=== PATIENT | male | born 1950 | race Caucasian/White ===

== ENCOUNTER 2017-03-07 08:17 | Day surgery (SDC) | payer OTHER ==
[~2017-03-07] VITALS: Ht 170.2 cm; Wt 73.0 kg
[~2017-03-07 08:17] MED LIST: FINA5 PO; FISH OIL 1,0001 EAC1; Felodipine ER5 MG PO; Flonase 0.05% N16 GM; LOVA40; OMEPRAZOLE MAGN20 MG PO; PARO10 PO
== END 2017-03-07 11:27 | disposition home or self-care (01) ==
LOC: ORSCSDS 08:17
PROVIDERS: Internal Medicine Gastroenterology
PROC: 0DBK8ZX Excision of Ascending Colon, Via Natural or Artificial Opening Endoscopic, Diagnostic (ICD-10-PCS; principal; 2017-03-07 09:45)
PROC: 0DB58ZX Excision of Esophagus, Via Natural or Artificial Opening Endoscopic, Diagnostic (ICD-10-PCS; principal; 2017-03-07 09:45)
DX: K22.70 Barrett's esophagus without dysplasia (principal); K21.0 Gastro-esophageal reflux disease with esophagitis; D12.2 Benign neoplasm of ascending colon; K57.30 Diverticulosis of large intestine without perforation or abscess without bleeding; Z86.010 Personal history of colon polyps; K59.00 Constipation, unspecified; E78.5 Hyperlipidemia, unspecified; Z87.891 Personal history of nicotine dependence; Z79.899 Other long term (current) drug therapy
CPT/HCPCS: 88305; 88312; J7120

== ENCOUNTER 2019-04-16 12:28 | Day surgery (SDC) | payer OTHER ==
[~2019-04-16] VITALS: Ht 167.6 cm; Wt 75.6 kg
== END 2019-04-16 14:43 | disposition home or self-care (01) ==
LOC: ORSCSDS 12:28
PROVIDERS: Internal Medicine Gastroenterology
PROC: 0DB58ZX Excision of Esophagus, Via Natural or Artificial Opening Endoscopic, Diagnostic (ICD-10-PCS; principal; 2019-04-16 13:45)
DX: K22.70 Barrett's esophagus without dysplasia (principal); E78.5 Hyperlipidemia, unspecified; I10 Essential (primary) hypertension; Z79.899 Other long term (current) drug therapy
CPT/HCPCS: 88305; J2704; J7120

== ENCOUNTER 2023-01-01 06:04 | Day surgery (SDC) | payer OTHER ==
[~2023-01-01] VITALS: Ht 170.2 cm; Wt 79.7 kg
--- NOTE | 2023-01-01 07:40 | NUR ---
01/01/23 0740 [facility] 0733: BLOCK COMPLETED BY DR TYSON. TIMEOUT COMPLETED PRIOR TO PROCEDURE.
--- NOTE | 2023-01-01 08:19 | NUR ---
01/01/23 0819 Kathy Andres 1ML OF EPI (1MG/ML) ADDED TO THE FIRST BAG OF IRRIGATION FLUID FOR USE AT THE OPSITE BY DR KRISHNA.
--- NOTE | 2023-01-01 10:43 | NUR ---
01/01/23 1043 RIC BELLE IV REMOVED CATHETER INTACT WNL
[2023-01-01 10:58] VITALS: BP 121/77
== END 2023-01-01 11:07 | disposition home or self-care (01) ==
LOC: ORSCSDS 06:04
PROVIDERS: Orthopaedic Surgery
PROC: 0LS34ZZ Reposition Right Upper Arm Tendon, Percutaneous Endoscopic Approach (ICD-10-PCS; principal; 2023-01-01 07:30)
PROC: 0RNJ4ZZ Release Right Shoulder Joint, Percutaneous Endoscopic Approach (ICD-10-PCS; principal; 2023-01-01 07:30)
DX: M75.121 Complete rotator cuff tear or rupture of right shoulder, not specified as traumatic (principal); M19.011 Primary osteoarthritis, right shoulder; M75.41 Impingement syndrome of right shoulder; K21.9 Gastro-esophageal reflux disease without esophagitis; Z79.899 Other long term (current) drug therapy
CPT/HCPCS: C1713; J0171; J0690; J1100; J2250; J2405; J2704; J3010; J7120

== ENCOUNTER → 2024-03-01 | Outpatient (CLI) | payer OTHER | LOC: LAB 14:40 → LAB SHORT 14:40 | DX: R35.0 Frequency of micturition (principal) | CPT/HCPCS: 87086 ==

== ENCOUNTER 2024-03-24 06:52 | Day surgery (SDC) | payer OTHER ==
[~2024-03-24] VITALS: Ht 170.2 cm; Wt 81.9 kg
[2024-03-24] MEDS ORDERED: Midazolam HCl 1MG / ML 2ML Vial ONE (06:56)
[2024-03-24] MEDS ORDERED: propofoL 20 ML IV ONE (06:56)
[2024-03-24] MEDS ORDERED: FentaNYL Citrate 50 MCG/ML 2 ML Injection ONE ×2 (06:56→10:04)
[2024-03-24] MEDS ORDERED: Dexamethasone Sod Phos 10 MG/ML 1ML VIAL ONE (06:57)
[2024-03-24] MEDS ORDERED: Glycopyrrolate 0.2 MG/ML 5ML VIAL ONE ×2 (06:57→10:40)
[2024-03-24] MEDS ORDERED: Ondansetron HCl 2 MG / ML 2ML Vial ONE (06:57)
[2024-03-24] MEDS ORDERED: Bupivacaine 0.5% HCl 5 MG/ML 30MLVIAL ONE (06:57)
[2024-03-24] MEDS ORDERED: Phenylephrine HCl 100 MCG/ML-NS 10MLSYR (1MG/10ML) ONE (06:57)
[2024-03-24] MEDS ORDERED: Rocuronium Bromide 10 MG/ML 5ML Injection IV ONE (06:57)
[2024-03-24] MEDS ORDERED: EPINEPhrine HCl 1 MG/ML 1ML Amp ONE (07:18)
[2024-03-24] MEDS ORDERED: Bupivacaine 0.5% W/EPI 1:200000 SDV 30 ML Vial ONE (07:19)
[2024-03-24] MEDS ORDERED: Lactated Ringer's 1,000 ML IV ONE (07:19)
--- NOTE | 2024-03-24 07:49 | NUR ---
03/24/24 0749 June Schmitt BLOCK DONE BY DR TYSON, PT TOLERATED BLOCK WELL.
[2024-03-24] MEDS ORDERED: CefTRIAXone Sodium 2,000 MG in NS 100 ML IV SCH (07:50)
[2024-03-24] MEDS ORDERED: Sugammadex Sodium 200 MG/2ML SDV (100 MG/ML) ONE (08:42)
--- NOTE | 2024-03-24 09:49 | NUR ---
03/24/24 0949 Jennifer Fox PT DENIES PAIN/NAUSEA, VSS, ON RA. PT RESTING COMFORTABLY W/ EYES CLOSED, RESPIRATIONS NORMAL & NON-LABORED. NO VISIBLE SIGNS OF DISTRESS NOTED.
--- NOTE | 2024-03-24 10:15 | NUR ---
03/24/24 [id number] Jennifer Fox PT TRANSFERREDTO RECLINER W/ MIN ASSIST, STEADY GAIT NOTED. PT DRESSED W/ HELP FROM THIS RN. PT HAS EXPERIENCE W/ SLING, EDUCATED PROVIDED ON SLING USE. POLAR LUIS F PLUGGED IN & ON PT, WORKING PROPERLY. PT TOLERATING SIPS OF APPLE JUICE W/O C/O NAUSEA. PT DENIES PAIN. VSS, ON RA. NO VISIBLE SIGNS OF DISTRESS NOTED.
[2024-03-24 10:16] VITALS: BP 143/87
[2024-03-24] MEDS ORDERED: HYDROmorphone HCl/Pf 1MG SYR ONE (11:36)
== END 2024-03-24 10:48 | disposition home or self-care (01) ==
LOC: ORSCSDS 06:52
PROVIDERS: Orthopaedic Surgery
PROC: 0LM24ZZ Reattachment of Left Shoulder Tendon, Percutaneous Endoscopic Approach (ICD-10-PCS; principal; 2024-03-24 07:30)
PROC: 0LS44ZZ Reposition Left Upper Arm Tendon, Percutaneous Endoscopic Approach (ICD-10-PCS; principal; 2024-03-24 07:30)
PROC: 0RNK4ZZ Release Left Shoulder Joint, Percutaneous Endoscopic Approach (ICD-10-PCS; principal; 2024-03-24 07:30)
DX: M75.122 Complete rotator cuff tear or rupture of left shoulder, not specified as traumatic (principal); M75.22 Bicipital tendinitis, left shoulder; M75.42 Impingement syndrome of left shoulder; I12.9 Hypertensive chronic kidney disease with stage 1 through stage 4 chronic kidney disease, or unspecified chronic kidney disease; N18.9 Chronic kidney disease, unspecified; E78.5 Hyperlipidemia, unspecified; K21.9 Gastro-esophageal reflux disease without esophagitis; Z79.899 Other long term (current) drug therapy
CPT/HCPCS: C1713; J0171; J0696; J1100; J1171; J2250; J2371; J2405; J2704; J3010; J7120

== ENCOUNTER 2024-05-08 09:49 | Day surgery (SDC) | payer OTHER ==
[~2024-05-08] VITALS: Ht 170.2 cm; Wt 79.5 kg
[~2024-05-08 09:49] MED LIST changes: +Glycopyrrolate 0.2 MG/ML 1MLVIAL ONE; +Lactated Ringer's 1,000 ML IV ONE; +Lidocaine 2% 5 ML SDV ONE; +Lidocaine HCl/Pf 1% 5 ML VIAL ONE; +Ondansetron HCl 2 MG / ML 2ML Vial ONE; +ePHEDrine Sulfate 50 MG/ML 1ML Injection ONE; +propofoL 50 ML IV ONE
[2024-05-08] MEDS ORDERED: NORVASC5 MG PO (10:38)
[2024-05-08] MEDS ORDERED: Lactated Ringer's 1,000 ML IV ONE (11:03)
[2024-05-08 12:56] VITALS: BP 107/87
--- NOTE | 2024-05-08 13:02 | NUR ---
05/08/24 1302 Messi Aguila PT INSTRUCTED BY DR. TRENT TO RETURN TO ER AND TELL THEM TO CALL DR. TRENT IF BLEEDING OCCURS.
== END 2024-05-08 12:55 | disposition home or self-care (01) ==
LOC: ORSCSDS 09:49
PROVIDERS: Internal Medicine Gastroenterology
PROC: 0DB78ZX Excision of Stomach, Pylorus, Via Natural or Artificial Opening Endoscopic, Diagnostic (ICD-10-PCS; principal; 2024-05-08 11:15)
PROC: 0DB58ZX Excision of Esophagus, Via Natural or Artificial Opening Endoscopic, Diagnostic (ICD-10-PCS; principal; 2024-05-08 11:15)
DX: K22.70 Barrett's esophagus without dysplasia (principal); K21.9 Gastro-esophageal reflux disease without esophagitis; K31.7 Polyp of stomach and duodenum; K44.9 Diaphragmatic hernia without obstruction or gangrene; I10 Essential (primary) hypertension; F41.9 Anxiety disorder, unspecified; Z79.899 Other long term (current) drug therapy
CPT/HCPCS: 88305; J2003; J2405; J2704; J7120